=== PATIENT | female | born 1970 | race Caucasian/White ===

== ENCOUNTER → 2017-09-22 | Outpatient (CLI) | payer BC ==
[~2017-09-22] MED LIST: HYDR-757 PO; IBUP-1773 PO; IBUP-1780 PO; ONDA8TAB13 PO; POLY119P5 PO; TRAM50TA2 PO
[2017-09-22 08:01] LABS: BASOPHILS % (AUTO) 0 % (0-10); EOSINOPHILS # (AUTO) 0.2 10^3/uL (0.0-0.3); EOSINOPHILS % (AUTO) 3 % (0-10); HEMATOCRIT 43 % (35-52); HEMOGLOBIN 15.1 G/DL (11.5-16.0); LYMPHOCYTES # (AUTO) 2.1 X 10^3 (1.0-4.0); LYMPHOCYTES % (AUTO) 31 % (12-44); MEAN CORPUSCULAR HEMOGLOBIN 29 PG (25-34); MEAN CORPUSCULAR HGB CONC 35 G/DL (32-36); MEAN CORPUSCULAR VOLUME 84 FL (80-99); MEAN PLATELET VOLUME 9.3 FL (7.4-10.4); MONOCYTES # (AUTO) 0.6 X 10^3 (0.0-1.0); MONOCYTES % (AUTO) 9 % (0-12); NEUTROPHILS # (AUTO) 3.8 X 10^3 (1.8-7.8); NEUTROPHILS % (AUTO) 56 % (42-75); PLATELET COUNT 267 10^3/uL (130-400); RED BLOOD COUNT 5.16 10^6/uL (4.35-5.85); RED CELL DISTRIBUTION WIDTH 13.5 % (10.0-14.5); WHITE BLOOD COUNT 6.8 10^3/uL (4.3-11.0)
[2017-09-22 08:19] LABS: ALANINE AMINOTRANSFERASE 14 U/L (0-55); ALBUMIN 4.5 GM/DL (3.2-4.5); ALKALINE PHOSPHATASE 65 U/L (40-136); BILIRUBIN,TOTAL 0.5 MG/DL (0.1-1.0); BUN/CREATININE RATIO 16; CALCIUM 9.6 MG/DL (8.5-10.1); CARBON DIOXIDE 25 MMOL/L (21-32); CHLORIDE 103 MMOL/L (98-107); CHOLESTEROL 226 MG/DL (< 200); GFR ESTIMATED > 60; GLUCOSE 93 MG/DL (70-105); HDL CHOLESTEROL 49 MG/DL (40-60); POTASSIUM 4.3 MMOL/L (3.6-5.0); SODIUM 139 MMOL/L (135-145); TOTAL PROTEIN 7.2 GM/DL (6.4-8.2); TRIGLYCERIDES 116 MG/DL (<150); VLDL CHOLESTEROL 23 MG/DL (5-40)
--- NOTE | 2017-09-22 10:22 | Diagnostic Imaging Report ---
Indication: Osteoporosis screening. Procedure: Bone mineral analysis of the lumbar spine and both hips was performed. Findings: The bone mineral density of lumbar spine L2-L4 is 1.112 with a T score of -0.7. The bone mineral density left femoral neck is 0.768 with a T score of -1.9. Bone mineral density of the right femoral neck is 0.814 with a T score of -1.6. Impression: Normal bone mineral density of the lumbar spine with osteopenia of bilateral femoral necks. Dictated by: Dictated on workstation # [id number]
--- NOTE | 2017-09-22 12:24 | Diagnostic Imaging Report ---
INDICATION: Left pelvic pain. Transabdominal and transvaginal sonography was performed. The uterus is surgically absent. The right ovary is surgically absent. Left ovary measures 3.6 x 2.6 x 3.7 cm. There is a cyst involving the left ovary measuring 1.7 x 2.4 x 1.6 cm. There is blood flow to the left ovary. No other adnexal masses detected. There is no free fluid. IMPRESSION: 1. Status post hysterectomy and right oophorectomy. 2. 2.4 cm simple left ovarian cyst. Dictated by: Dictated on workstation # [id number]
--- NOTE | 2017-09-22 14:38 | Diagnostic Imaging Report ---
INDICATION: Palpable lump 3 o'clock location of the left breast. Sonographic interrogation of the outer left breast was performed. No solid or cystic masses identified. IMPRESSION: BI-RADS 4 No sonographic abnormality is seen. Biopsy of right breast calcifications per mammogram report is recommended. ACR BI-RADS Category 4: Suspicious abnormality. Report was called to [employer] liaison officer of Dr. Villatoro by jerrod at 2:38 pm. Dictated by: Dictated on workstation # [id number]
--- NOTE | 2017-09-22 18:21 | Diagnostic Imaging Report ---
INDICATION: Palpable lump at the 3 o'clock location of the left breast. COMPARISON: No prior mammograms are available for comparison. TECHNIQUE: Bilateral CC, MLO, and mediolateral 3D mammography was performed. In addition, exaggerated CC views were obtained bilaterally. Magnification views of the right breast in the CC and ML projections were also performed. The current study was also evaluated with a Computer Aided Detection (CAD) system. FINDINGS: Both breasts are heterogeneously dense, limiting the sensitivity of mammography. No mass in the outer portion of the left breast is identified. There is a cluster of microcalcifications in the inner aspect of the right breast at approximately 9 o'clock location. No other suspicious calcifications are seen. The axillae are unremarkable. IMPRESSION: 1. Suspicious cluster of microcalcifications inner right breast. Further evaluation with stereotactic biopsy is recommended. 2. No abnormality in the left breast at the area of palpable abnormality is seen. Ultrasound of the outer left breast is recommended. ACR BI-RADS Category 4: Suspicious abnormality. Result letter will be mailed to the patient. Note: At least 10% of breast cancer is not imaged by mammography. Dictated by: Dictated on workstation # [id number]
== END ==
LOC: RAD 07:43
PROVIDERS: ATTEND Obstetrics & Gynecology
DX: Z00.00 Encounter for general adult medical examination without abnormal findings (principal); Z13.820 Encounter for screening for osteoporosis; Z13.220 Encounter for screening for lipoid disorders; Z13.1 Encounter for screening for diabetes mellitus; N83.202 Unspecified ovarian cyst, left side; M85.88 Other specified disorders of bone density and structure, other site; N63.20 Unspecified lump in the left breast, unspecified quadrant; R63.6 Underweight; Z90.710 Acquired absence of both cervix and uterus; Z90.721 Acquired absence of ovaries, unilateral; Z82.62 Family history of osteoporosis; Z72.0 Tobacco use
CPT/HCPCS: 36415; 76642; 76830; 76856; 77066; 77080; 80053; 80061; 83036; 84443; 85025

== ENCOUNTER → 2017-10-03 | Outpatient (CLI) | payer BC ==
[~2017-10-03] VITALS: Ht 167.6 cm; Wt 49.4 kg
[~2017-10-03] MED LIST changes: +LIDOCAINE 1% INJ 20 ML (XYLOCAINE) VIAL INJ ONE; +LIDOCAINE 1% INJ 50 ML (XYLOCAINE) VIAL ONE
[2017-10-03 09:20] VITALS: BP 137/81
[2017-10-03 11:16] VITALS: BP 110/70
--- NOTE | 2017-10-03 20:01 | Diagnostic Imaging Report ---
INDICATION: Right breast calcification. Patient presents for stereotactic biopsy. The patient was brought to the stereotactic suite, placed in a chair in a sitting upright position. The right breast was positioned in the mediolateral positioning. The cluster of microcalcifications in the far inner aspect of the right breast were stereotactically targeted. The right breast was then prepped and draped in the usual sterile fashion. A small amount of 1% lidocaine was utilized for local anesthesia. A total of 4 core biopsies were obtained of the inner right breast utilizing an 8-gauge vacuum-assisted mammotome biopsy needle. Specimen radiograph does demonstrate calcifications within all 4 samples but most numerous in the sample #2 and #3. Marker clip was then deployed. Hemostasis was obtained using manual compression. The patient tolerated the procedure well. IMPRESSION: Successful stereotactic mammotome biopsy of the right breast calcifications in the inner aspect, utilizing vacuum-assisted device. Calcifications were present within the biopsy samples. Pathology results are currently pending. Dictated by: Dictated on workstation # [id number]
== END ==
LOC: RAD 09:01
PROVIDERS: ATTEND Obstetrics & Gynecology
DX: R92.1 Mammographic calcification found on diagnostic imaging of breast (principal)
CPT/HCPCS: 19081

== ENCOUNTER → 2018-01-20 | Outpatient (CLI) | payer BC ==
[~2018-01-20] MED LIST changes: -LIDOCAINE 1% INJ 20 ML (XYLOCAINE) VIAL INJ ONE; -LIDOCAINE 1% INJ 50 ML (XYLOCAINE) VIAL ONE
--- NOTE | 2018-01-20 11:30 | Diagnostic Imaging Report ---
INDICATION: Right breast calcifications with a right breast biopsy in September 2017. Study is performed for followup. EXAM / TECHNIQUE: 2-D and 3-D unilateral right diagnostic mammography was performed including spot compression MLO as well as conventional CC, MLO and mediolateral views were performed. FINDINGS: Postbiopsy changes in the inner right breast are noted with biopsy clip in place. Previously noted calcifications appear to have been surgically removed. There is some mild residual density at the biopsy site which may represent some scarring versus a small amount of residual hematoma/seroma. Further evaluation of this area with ultrasound is recommended. No new abnormality is seen. The right axilla is unremarkable. The right breast remains heterogeneously dense. IMPRESSION: BI-RADS 0 Postbiopsy changes in her right breast, as described. Previously seen calcifications at this location have been removed and there is a stereotactic clip in place. Mild residual density is present, described above. Further evaluation with ultrasound is recommended. ACR BI-RADS Category 0: Incomplete. (Needs additional imaging evaluation). Result letter will be mailed to the patient. Note: At least 10% of breast cancer is not imaged by mammography. Dictated by: Dictated on workstation # [id number]
--- NOTE | 2018-01-20 11:32 | Diagnostic Imaging Report ---
INDICATION: Right breast biopsy in September for microcalcifications. FINDINGS: Sonographic interrogation of the inner right breast was performed at the area of biopsy. No solid or cystic mass is seen. No sonographic abnormality is identified. No hematoma or seroma is seen. IMPRESSION: BI-RADS 3. No sonographic abnormality is seen. The patient should return in 6 months for a followup mammogram to confirm stability. ACR BI-RADS Category 3: Probably benign findings. Result letter will be mailed to the patient. Note: At least 10% of breast cancer is not imaged by mammography. Dictated by: Dictated on workstation # [id number]
== END ==
LOC: RAD 09:19
PROVIDERS: ATTEND Surgery
DX: N64.89 Other specified disorders of breast (principal)